=== PATIENT | male | born 1995 | race Caucasian/White ===

== ENCOUNTER 2016-10-10 23:21 | Emergency (ER) | payer BC ==
[2016-10-10 23:27] VITALS: TEMP 97.9
[2016-10-10] MEDS ORDERED: fentaNYL 100 MCG/2 ML INJ IVP ONE (23:34)
[2016-10-10] MEDS ORDERED: fentaNYL 100 MCG/2 ML INJ ONE (23:55)
[2016-10-11] MEDS ORDERED: fentaNYL 100 MCG/2 ML INJ IVP ONE (00:01)
--- NOTE | 2016-10-11 00:04 | DX ---
Left Shoulder , 3 Views History: Pain post trauma. Fall. Comparison: November 06, 2015 Findings: There is a recurrent anterior left shoulder dislocation. No fracture is identified. Impression: Recurrent anterior shoulder dislocation.
[2016-10-11] MEDS ORDERED: LORazepam 2 MG/ML INJ ONE (00:06)
[2016-10-11] MEDS ORDERED: LORazepam 2 MG/ML INJ IVP ONE (00:11)
--- NOTE | 2016-10-11 01:24 | EDPHY ---
[id number]: Unsure Current Tetanus Diphtheria and Acellular Pertussis (TDAP): Unsure - Medical/Surgical History Hx Asthma: No Hx Chronic Respiratory Disease: No Hx Diabetes: No Hx Cardiac Disease: No Hx Renal Disease: No Hx Cirrhosis: No Hx Alcoholism: No Hx HIV/AIDS: No Hx Splenectomy or Spleen Trauma: No Other PMH: shoulder dislocation and surgical repair - Social History Smoking Status: Never smoked Time Seen by Provider: 10/10/16 23:29 HPI/ROS: Chief complaint: Left shoulder dislocation History of present illness: This is a 21-year-old male who presents to the emergency department for left shoulder dislocation. Patient reports he was walking when he slipped on ice directly onto his left shoulder. At that time he believes he dislocated it. He has dislocated this shoulder multiple times. Patient denies associated signs or symptoms including no open wounds, no paresthesias and no abnormal coolness the left arm. Further no report of trauma to the rest of the body. Review of systems: A 10 point review of systems was obtained and other than described above was negative (Ivan Oakes) - Physical Exam Exam: General Appearance: Alert, nontoxic. Eyes: Pupils equal and round no pallor or injection. ENT, Mouth: Mucous membranes moist. Respiratory: There are no retractions, lungs are clear to auscultation. Cardiovascular: Regular rate and rhythm. Radial pulses 2+ bilaterally. Gastrointestinal: Abdomen is soft and nontender, no masses, bowel sounds normal. Neurological: Alert and oriented. Strength and sensation intact including sensation throughout the left arm. Skin: Warm and dry, no rashes. Musculoskeletal: Head is normocephalic, atraumatic. The spine is nontender to palpation along its entire length. Chest wall is intact palpation. Obvious deformity to the left shoulder, he does not want to move it secondary to pain. He can move the left elbow, wrist and digits of the hand. The other extremities are unremarkable. Psychiatric: Patient is oriented X 3, there is no agitation. (Ivan Oakes) Constitutional: Initial Vital Signs Temperature (C) 36.6 C 10/10/16 23:25 Heart Rate 78 10/10/16 23:25 Respiratory Rate 18 10/10/16 23:25 Blood Pressure 110/96 H 10/10/16 23:25 O2 Sat (%) 94 10/10/16 23:25 O2 Delivery Mode Room Air Allergies/Adverse Reactions: No Known Allergies Allergy (Unverified 10/10/16 23:25) Home Medications: Medication Instructions Recorded Hydrocodone/APAP 325 [Wheelwright 1 tab PO Q4 #10 tab 10/11/16 5/325 (*)] Medical Decision Making - Diagnostics Imaging: X-ray left shoulder shows an anterior dislocation Post reduction x-ray shows good anatomic alignment (Ivan Oakes) Procedures: Procedure: Dislocation reduction. The dislocation of the left shoulder was reduced using massage and traction technique without complications. Post reduction the patient's neurovascular exam is normal. Post reduction x-ray demonstrates reduction of the joint to the anatomic position. The procedure was performed by myself. Patient was placed in a sling. (Ivan Oakes) ED Course/Re-evaluation: Patient seen under the supervision of my secondary supervising physician Dr. Eva Parkinson. Patient presents to the emergency department for a left shoulder injury. The arm is neurovascularly intact. X-ray confirms a dislocation. It is reduced. Patient is observed in the emergency room to ensure he has recovered from narcotic medication. His left arm remains neurovascularly intact. Patient is discharged home. Home care is discussed. He is referred to orthopedics for further evaluation and care. Return precautions are given. Patient voiced understanding and agreement with plan. ( Ivan Oakes) Differential Diagnosis: Included but not limited to contusion, sprain or strain, bony fracture, joint dislocation (Ivan Oakes) Other Provider: PHYSICIAN DOCUMENTATION: The patient was evaluated and managed by the Physician Grinder Dresser. My co- signature indicates that I have reviewed this chart and I agree with the findings and plan of care as documented. I am the secondary supervising physician. (Eva Parkinson) - Data Points Medications Given: Discontinued Medications Fentanyl (Sublimaze) 100 mcg IVP EDNOW ONE Stop: 10/10/16 23:35 Last Admin: 10/10/16 23:45 Dose: 100 mcg Fentanyl (Sublimaze) 0 mcg IVP EDNOW ONE Stop: 10/11/16 00:02 Last Admin: 10/11/16 00:00 Dose: 100 mcg Lorazepam (Ativan Injection) 1 mg IVP EDNOW ONE Stop: 10/11/16 00:12 Last Admin: 10/11/16 00:10 Dose: 1 mg Departure - Departure Disposition: Home, Routine, Self-Care Clinical Impression: Shoulder dislocation Condition: Good Instructions: Shoulder Dislocation (ED) Additional Instructions: Follow-up with orthopedics for continued evaluation and care In regards to pain control see the following: Use ibuprofen 600 mg 3 times a day for the next 2-3 days for pain In addition You have been prescribed Wheelwright for pain. Wheelwright contains Tylenol, do not take extra Tylenol/acetaminophen/Apap with it. It is sedating. If symptoms worsen or new symptoms develop return to the emergency department for recheck Referrals: OUT OF STATE,. [Primary Care Provider] - As per Instructions Babs Acevedo MD [Medical Doctor] - As per Instructions Stand Alone Forms: School Excuse Prescriptions: Hydrocodone/APAP 5/325 [Wheelwright 5/325 (*)] 1 tab PO Q4 #10 tab
[2016-10-11 02:58] VITALS: BP 134/76; PULSE 67; RESP 16; O2SAT 95
--- NOTE | 2016-10-11 07:41 | DX ---
Left Shoulder , 2 Views, 00:33 History: Post reduction Comparison: Prereduction yesterday at 23:49 Findings: The humeral head is well rounded and normally located. No fracture is identified. Impression: Successful reduction.
== END 2016-10-11 01:41 | disposition home or self-care (01) ==
PROC: 0RSKXZZ Reposition Left Shoulder Joint, External Approach (ICD-10-PCS; principal; 2016-10-10)
DX: M24.412 Recurrent dislocation, left shoulder (principal); W00.0XXA Fall on same level due to ice and snow, initial encounter; Y99.8 Other external cause status; Y93.01 Activity, walking, marching and hiking
CPT/HCPCS: 96374; A4565; J3010

== ENCOUNTER 2018-11-05 00:54 | Emergency (ER) | payer BC, OTHER ==
[2018-11-05] MEDS ORDERED: NS 1,000 ML IV ONE ×2 (01:07→01:08)
[2018-11-05] MEDS ORDERED: LORazepam 2 MG/ML INJ IVP ONE (01:26)
--- NOTE | 2018-11-05 01:28 | EDPHY ---
H & P Stated Complaint: RAPID HR AFTER SMOKING MJ Time Seen by Provider: 11/05/18 01:27 HPI/ROS: HPI CHIEF COMPLAINT: Tachycardia HISTORY OF PRESENT ILLNESS: This is a 23-year-old male, [employer] student, he presents emergency room with tachycardia. The patient states he smoked marijuana around 11 30 at night around midnight he started feeling his heart rate very fast. He states he felt very anxious. He checked his heart rate to be in the 170s. It eventually came down to the 130s. States stayed in the 130s he decided come the emergency room. He does complain that he felt very anxious with numbness and tingling all over. He states he typically smokes marijuana daily. Denies any other drug use. Denies chest pain or shortness of breath. His main complaint is tachycardia and that he can feel his heart rate very fast. He does state he took Vyvanse earlier this morning around 9:00 a.m.. I am seeing him it is now 130 in the morning. His heart rate is 104. He denies any chest pain. He does complain of feeling anxious and his heart rate being very fast. He denies any history of cardiovascular disease or family history of cardiovascular disease. Denies any history of cardiac arrhythmia. Here in emergency room denies chest pain or shortness of breath. Past Medical History: Denies significant medical history Past Surgical History: Denies significant surgical history Social History: Smokes marijuana nightly. Denies current alcohol use. Took Vyvanse this morning. Denies other drugs or tobacco. [employer] student. Family History: Noncontributory ROS REVIEW OF SYSTEMS: 10 Systems were reviewed and negative with the exception of the elements mentioned in the history of present illness. Exam Constitutional triage nursing summary reviewed, vital signs reviewed, awake/ alert. Vital signs noted at triage to be tachycardic. 140s. Eyes normal conjunctivae and sclera, EOMI, PERRLA. HENT normal inspection, atraumatic, moist mucus membranes, no epistaxis, neck supple/ no meningismus, no raccoon eyes. Respiratory clear to auscultation bilaterally, normal breath sounds, no respiratory distress, no wheezing. Cardiovascular tachycardia., regular rhythm, no murmur, no edema, distal pulses normal. Gastrointestinal soft, non-tender, no rebound, no guarding, normal bowel sounds, no distension, no pulsatile mass. Genitourinary no CVA tenderness. Musculoskeletal no midline vertebral tenderness, full range of motion, no calf swelling, no tenderness of extremities, no meningismus, good pulses, neurovascularly intact. Skin pink, warm, & dry, no rash, skin atraumatic. Neurologic awake, alert and oriented x 3, AAOx3, moves all 4 extremities equally, motor intact, sensory intact, CN II-XII intact, normal cerebellar, normal vision, normal speech. Psychiatric normal mood/affect. Heme/Lymph/Immune no lymphadenopathy. Differential Diagnosis: Includes but is not limited to in a particular order cardiac arrhythmia, anxiety attack, panic attack, marijuana use, Vyvanse use. Medical Decision Making: Plan for this patient IV establishment nurse monitoring , IV fluid bolus 2 L normal saline, IV Ativan for anxiety 1 mg, basic blood work and re-evaluate. EKG, troponin, D-dimer, chest x-ray. Re-evaluation: EKG interpretation by me on record in [facility] system. Impression time of EKG 1:07 a.m., sinus tach 118 without any signs of acute ischemia or cardiac arrhythmia. No ST elevation no ST depression no T-wave abnormalities no prolonged intervals. Troponin 0.00 EKG interpretation by me on record in [facility] system. Impression time of EKG 3:30 a.m., sinus rhythm rate of 81 no signs of acute ischemia or cardiac arrhythmia or WPW. Unremarkable EKG. ED x-ray chest one view negative for acute cardiopulmonary disease. Image interpreted by myself. 0333: Patient re-evaluated this time resting comfortably no acute distress. His heart rate is been stable in 80s. He has had no signs of cardiac arrhythmia here in the emergency room. He did come in tachycardic. I discussed return precautions with him. The patient understands return emergency room if develops high heart rate, chest pain, shortness of breath, fever, vomiting, passing out. I do recommend he follows up with Cardiology for fast heart rate. It is possible is fast heart rate was due to anxiety, marijuana, attention deficit hyperactivity disorder medication and dehydration. He is feeling much better after 2 L of fluid. He has no chest pain or shortness of breath. He is well-hydrated. Ambulates well. No complaints. Discussed this with him. He understands return precautions Source: Patient - Personal History Current Tetanus Diphtheria and Acellular Pertussis (TDAP): Yes - Medical/Surgical History Hx Asthma: No Hx Chronic Respiratory Disease: No Hx Diabetes: No Hx Cardiac Disease: No Hx Renal Disease: No Hx Cirrhosis: No Hx Alcoholism: No Hx HIV/AIDS: No Hx Splenectomy or Spleen Trauma: No Other PMH: shoulder dislocation and surgical repair, MJ USE - Social History Smoking Status: Never smoked Constitutional: Initial Vital Signs Temperature (C) 36.5 C 11/05/18 00:59 Heart Rate 142 H 11/05/18 00:59 Respiratory Rate 20 11/05/18 00:59 Blood Pressure 151/90 H 11/05/18 00:59 O2 Sat (%) 97 11/05/18 00:59 O2 Delivery Mode Room Air Allergies/Adverse Reactions: No Known Allergies Allergy (Verified 11/05/18 00:58) Home Medications: Medication Instructions Recorded NK [No Known Home Meds] 11/05/18 Medical Decision Making - Data Points Laboratory Results: Laboratory Results 11/05/18 01:20 11/05/18 01:20 11/05/18 11/05/18 11/05/18 01:39 01:20 01:20 WBC RBC Hgb Hct MCV MCH MCHC RDW Plt Count MPV Neut % (Auto) Lymph % (Auto) Davison % (Auto) Eos % (Auto) Baso % (Auto) Nucleat RBC Rel Count Absolute Neuts (auto) Absolute Lymphs (auto) Absolute Monos (auto) Absolute Eos (auto) Absolute Basos (auto) Absolute Nucleated RBC Immature Gran % Immature Gran # D-Dimer < 0.27 ug/mLFEU ug/mLFEU (0.00-0.50) Sodium 139 mEq/L mEq/L (135-145) Potassium 3.3 mEq/L L mEq/L (3.5-5.2) Chloride 106 mEq/L mEq/L (97-110) Carbon Dioxide 23 mEq/l mEq/l (22-31) Anion Gap 10 mEq/L mEq/L (6-14) BUN 16 mg/dL mg/dL (7-23) Creatinine 1.0 mg/dL mg/dL (0.7-1.3) Estimated GFR > 60 Glucose 138 mg/dL H mg/dL (70-100) Calcium 9.8 mg/dL mg/dL (8.5-10.4) POC Troponin I 0.00 ng/mL ng/mL (0.00-0.08) 11/05/18 01:20 WBC 9.76 10^3/uL H 10^3/uL (3.80-9.50) RBC 5.09 10^6/uL 10^6/uL (4.40-6.38) Hgb 15.1 g/dL g/dL (13.7-17.5) Hct 43.1 % % (40.0-51.0) MCV 84.7 fL fL (81.5-99.8) MCH 29.7 pg pg (27.9-34.1) MCHC 35.0 g/dL g/dL (32.4-36.7) RDW 12.1 % % (11.5-15.2) Plt Count 235 10^3/uL 10^3/uL (150-400) MPV 11.1 fL fL (8.7-11.7) Neut % (Auto) 48.8 % % (39.3-74.2) Lymph % (Auto) 43.4 % % (15.0-45.0) Davison % (Auto) 6.6 % % (4.5-13.0) Eos % (Auto) 0.6 % % (0.6-7.6) Baso % (Auto) 0.4 % % (0.3-1.7) Nucleat RBC Rel Count 0.0 % % (0.0-0.2) Absolute Neuts (auto) 4.76 10^3/uL 10^3/uL (1.70-6.50) Absolute Lymphs (auto) 4.24 10^3/uL H 10^3/uL (1.00-3.00) Absolute Monos (auto) 0.64 10^3/uL 10^3/uL (0.30-0.80) Absolute Eos (auto) 0.06 10^3/uL 10^3/uL (0.03-0.40) Absolute Basos (auto) 0.04 10^3/uL 10^3/uL (0.02-0.10) Absolute Nucleated RBC 0.00 10^3/uL 10^3/uL (0-0.01) Immature Gran % 0.2 % % (0.0-1.1) Immature Gran # 0.02 10^3/uL 10^3/uL (0.00-0.10) D-Dimer Sodium Potassium Chloride Carbon Dioxide Anion Gap BUN Creatinine Estimated GFR Glucose Calcium POC Troponin I Medications Given: Discontinued Medications Sodium Chloride (Ns) 1,000 mls @ 0 mls/hr IV EDNOW ONE; Wide Open PRN Reason: Protocol Stop: 11/05/18 01:08 Last Admin: 11/05/18 01:28 Dose: 1,000 mls Sodium Chloride (Ns) 1,000 mls @ 0 mls/hr IV ONCE ONE PRN Reason: Wide Open Stop: 11/05/18 01:09 Last Admin: 11/05/18 01:29 Dose: 1,000 mls Lorazepam (Ativan Injection) 1 mg IVP EDNOW ONE Stop: 11/05/18 01:27 Last Admin: 11/05/18 01:29 Dose: 1 mg Point of Care Test Results: Chemistry 11/05/18 01:39 POC Troponin I 0.00 ng/mL ng/mL (0.00-0.08) Departure - Departure Disposition: Home, Routine, Self-Care Clinical Impression: Tachycardia Condition: Good Instructions: Tachycardia (ED) Additional Instructions: 1. Return to the emergency room if he develops worsening symptoms 2. Rest and stay well-hydrated 3. Please follow up with Cardiology Referrals: NONE *PRIMARY CARE P,. [Primary Care Provider] - As per Instructions Wagner Diane MD [Medical Doctor] - As per Instructions
[2018-11-05 01:30] LABS: PLATELET COUNT 235 10^3/uL (150-400)
[2018-11-05 04:02] VITALS: BP 114/63
--- NOTE | 2018-11-07 07:33 | CPEKG ---
Test Reason : OPEN Blood Pressure : / mmHG Vent. Rate : 081 BPM Atrial Rate : 080 BPM P-R Int : 164 ms QRS Dur : 105 ms QT Int : 376 ms P-R-T Axes : 053 045 031 degrees QTc Int : 437 ms Sinus rhythm Confirmed by Rivera Ortiz ([id number]) on 11/07/2018 7:33:25 AM Referred By: Rivera Ortiz Confirmed By:Rivera Ortiz
--- NOTE | 2018-11-07 07:34 | CPEKG ---
Test Reason : OPEN Blood Pressure : / mmHG Vent. Rate : 118 BPM Atrial Rate : 118 BPM P-R Int : 169 ms QRS Dur : 106 ms QT Int : 332 ms P-R-T Axes : 050 081 026 degrees QTc Int : 466 ms Sinus tachycardia Confirmed by Rivera Ortiz ([id number]) on 11/07/2018 7:34:03 AM Referred By: PHYSICIAN ED Confirmed By:Rivera Ortiz
== END 2018-11-05 04:05 | disposition home or self-care (01) ==
DX: R00.0 Tachycardia, unspecified (principal); E86.9 Volume depletion, unspecified
CPT/HCPCS: 80305; 84484-ER; 96374; J2060